=== PATIENT | male | born 1995 | race Caucasian/White ===

== ENCOUNTER 2023-11-30 07:11 | Emergency (ER) | payer BC, SELFPAY ==
[2023-11-30 07:20] VITALS: BP 164/97; PULSE 91; RESP 16; TEMP 36.6; O2SAT 99
--- NOTE | 2023-11-30 07:30 | DI.US_ITS ---
Exam(s) US LOWER EXTREMITY VENOUS RT EXAM: US LOWER EXTREMITY VENOUS RT CLINICAL HISTORY: swelling right leg, pain behind knee TECHNIQUE: Right lower extremity venous ultrasound performed using grayscale, color-flow, and spectr al Doppler analysis. COMPARISON: No exams were available for comparison FINDINGS: The right common femoral, femoral and popliteal veins demonstrate normal compressibility, augmentatio n, and color Doppler. The posterior tibial and peroneal veins are patent. The saphenofemoral junctio n is unremarkable. There is no evidence of a Sood cyst. The soft tissues are unremarkable. IMPRESSION: No evidence of a right lower extremity DVT. DATA REPOSITORY:
--- NOTE | 2023-11-30 07:35 | ED.GENADUL_ITS ---
Discharge Plan Disposition Patient Disposition: Home Condition: Improving Discharge Details Chief Complaint: Orthopedic Clinical Impression: Edema Primary Care Provider: Charles Ang ED Provider: Valentin Carter Home Meds and New Rx's Prescriptions: No Action No Known Home Meds Discharge Instructions Instructions: Leg Edema (ED) Additional Instructions: Please elevate your leg at rest, continue with motion as tolerated to improve lymphatic and blood flow out of your leg. Please return to the emergency department for any worsening symptoms HPI General Date/Time Provider Initiated Documentation: 11/30/23 07:26 . HPI Narrative: 28-year-old male presents with right lower extremity swelling and redness intermittent over the last couple of days, did have right knee pain last month and was evaluated as an outpatient and underwent MRI, has noted increasing pain running down the back of the leg starting behind the knee. Denies history of thromboembolic disease. No recent immobilization no recent hospitalization. Did take a 2-hour car drive recently. No chest pain or shortness of breath. Primary care physician was also concerned that this could be a sign of Lyme Related Data Home Medications Medication Instructions Recorded Confirmed Unknown [No Known Home Meds] 11/30/23 11/30/23 Allergies Allergy/AdvReac Type Severity Reaction Status Date / Time amoxicillin [From Augmentin] Allergy Mild Hives Verified 11/30/23 07:19 azithromycin Allergy Mild Hives Verified 11/30/23 07:19 clavulanic acid Allergy Mild Hives Verified 11/30/23 07:19 [From Augmentin] General Stated Complaint: Orthopedic DWIGHT: 4 Review of Systems Narrative: Review of Systems Constitutional: negative Eyes: negative ENT: negative Cardiovascular: negative Respiratory: negative Gastrointestinal: negative : negative Musculoskeletal: Leg pain, swelling Skin: negative Neurologic: negative Psych: negative Exam Narrative Exam Narrative: Physical Examination General: alert, awake, cooperative, resting comfortably, no acute distress Respiratory: normal respiratory effort, speaking in full sentences Skin: no lesions, rashes or trauma appreciated Neuro: AAOx3, normal speech, moving all extremities Extremities: Right lower extremity: Full range of motion hip knee ankle foot, mi ld edema at level of ankle and manzano, no warmth, mild erythema, nontender, no crepitus, DP pulse intact, sensation intact, ambulatory; no joint effusion no palpable cord Psych: Appropriate mood and affect Course Vital Signs Vital signs: Vital Signs Temperature 36.6 C 11/30/23 07:20 Pulse 91 H 11/30/23 07:20 Respiratory Rate 16 11/30/23 07:20 Blood Pressure 164/97 H 11/30/23 07:20 Pulse Oximetry 99 11/30/23 07:20 Temperature 36.6 C 11/30/23 07:20 Temperature Source Temporal Artery Scan 11/30/23 07:20 Pulse 91 H 11/30/23 07:20 Respiratory Rate 16 11/30/23 07:20 Respiratory Effort Normal, Non-Labored 11/30/23 07:23 Blood Pressure 164/97 H 11/30/23 07:20 Blood Pressure Position Sitting 11/30/23 07:20 Pulse Oximetry 99 11/30/23 07:20 Oxygen Delivery Method Room Air 11/30/23 07:20 Oxygen Flow Rate 0 11/30/23 07:20 Pain Level 0 11/30/23 07:32 Medical Decision Making 28-year-old male presents with right lower extremity pain and swelling over the last several days, noted knee pain early last month underwent MRI as outpatient, patient endorses pain behind right knee radiating down leg, intermittent redness and swelling, afebrile nontoxic, no recent hospitalization no recent immobilization no recent trauma, no history of thromboembolic disease, patient has normal DP pulses, warm well-perfused sensate extremity, ambulatory, mild erythema, no warmth, no crepitus; consider DVT versus lymphedema versus Sood's cyst, primary care physician also concern for possible Lyme, will obtain right lower extremity ultrasound, Lyme study, basic labs, close reassessment disposition pending results 10: 10 patient resting comfortably no acute distress. Leg swelling has greatly reduced after being elevated here in department. No pain and no redness. No signs of systemic infection. No evidence of DVT on ultrasound. Patient has been less mobile with his right lower extremity due to bony contusion of right knee likely decreased lymphatic drainage due to less mobility. Counseled patient regarding home care and return precautions Quality:SDOH Health Related Social Needs: No Data to Display PFSH All Active Problems (Updated 11/30/23 @ 10:12 by Valentin Carter MD) Edema (Acute) Social History Smoking/Tobacco Use Status: Never Smoking risk assessment performed?: Yes Alcohol Intake: never Drug use: Never Substance use type: does not use Housing: house Do you feel safe at home: Yes Do you feel safe in your relationship?: Yes
[2023-11-30 07:52] LABS: Abs Immature Grans 0.01 10^3/uL (0.0-0.06); Absolute Basophil Count 0.03 10^3/uL (0.0-0.2); Absolute Eosinophil Count 0.08 10^3/uL (0.0-0.7); Absolute Lymphocyte Count 1.36 10^3/uL (1.2-3.4); Absolute Monocyte Count 0.52 10^3/uL (0.1-0.8); Absolute Neutrophil Count 2.92 10^3/uL (1.2-6.7); Basophils % 0.6; Eosinophils % 1.6; HCT 47.5 % (40.0-50.0); HGB 16.5 g/dL (13.5-17.5); Immature Grans % 0.2; Lymphocytes % 27.6; MCH 30.8 pg (27.0-33.0); MCHC 34.7 % (32.0-36.0); MCV 89 fL (80-95); MPV 9.7 fL (8.0-11.0); Monocytes % 10.6; Neutrophils % 59.4; Platelet Count 183 10^3/uL (130-400); RBC 5.36 10^6/uL (4.36-5.78); RDW 11.6 % (11.8-14.1); RDW-SD 37.2 fL; WBC 4.92 10^3/uL (4.4-10.8)
[2023-11-30 08:07] LABS: ALT 16 U/L (16-63); AST 12 U/L (15-37); Albumin 3.9 g/dL (3.4-5.0); Alkaline Phosphatase 70 U/L (46-116); Anion Gap 6.3 mmol/L (3-11); BUN 17 mg/dL (7-18); Bilirubin, Total 0.7 mg/dL (0.2-1.0); CO2 29.7 mmol/L (21.0-32.0); CREATININE 1.1 mg/dL (0.70-1.30); Calcium 8.9 mg/dL (8.5-10.1); Chloride 106 mmol/L (98-107); Estimated GFR 93.19 (mL/min/1.73m2); Glucose 110 mg/dL (74-106); Potassium 3.7 mmol/L (3.5-5.1); Sodium 142 mmol/L (136-145); Total Protein 7.2 g/dL (6.4-8.2)
[2023-12-01 11:03] LABS: Lyme Ab w Rflx to Lyme Confirm Negative (Negative)
[2023-12-02 18:11] LABS: Anaplasma phagocytophilum Negative (Negative); B. miyamotoi PCR Negative (Negative); Babesia divergens/MO-1 Negative (Negative); Babesia duncani Negative (Negative); Babesia microti Negative (Negative); Ehrlichia chaffeensis Negative (Negative); Ehrlichia ewingii/canis Negative (Negative); Ehrlichia muris eauclairensis Negative (Negative)
== END 2023-11-30 10:20 | disposition home or self-care (01) ==
PROVIDERS: Emergency Provider Emergency Medicine; PCP Family Medicine
DX: R22.41 Localized swelling, mass and lump, right lower limb (principal); M25.561 Pain in right knee
CPT/HCPCS: 36415; 80053; 87798; 99284; 85025; 86618; 93971